=== PATIENT | male | born 1985 | race Caucasian/White ===

== ENCOUNTER 2021-01-24 18:13 | Inpatient (IN) | payer BC, SELFPAY ==
[2021-01-24 18:43] VITALS: BP 128/89; PULSE 70; RESP 16; TEMP 36.4; O2SAT 98
[2021-01-24] MEDS: hyDROXYzine 25 mg Capsule 50 MG PO (20:22)
[2021-01-24] MEDS: trazodone 50 mg Tablet PO (20:22)
[2021-01-24 20:57] VITALS: BP 105/63; PULSE 67; RESP 18; TEMP 36.6; O2SAT 96
[2021-01-24] MEDS: nicotine 2 mg Gum BUCCAL (22:25)
--- NOTE | 2021-01-25 02:24 | PC.NURSE ---
35/M DIRECT ADMISSION FROM [facility] IN [place], [place], BROUGHT TO THEIR ED BY HIS MOTHER, DEPRESSION IS CONTINUING TO WORSEN, SINCE summer WITH INCREASING EPISODES OF PSYCHOSIS. PT BELIEVES, STUFF I SAID WAS TAKEN OUT OF CONTEXT , MOTHER REPORTS PT MAKING SEVERAL STATEMENTS ABOUT SHOOTING HIMSELF WITH HIS GUN. PT DENIES SI AT THIS TIME. PT IS CONCERNED ABOUT LOSING HIS CONCEALED CARRY PERMIT FOR HIS WEAPON, HE IS CALM,COOPERATIVE, AND WELL SPOKEN. PT HAS NO PREVIOUS PSYCH VISITS
[2021-01-25 06:00] VITALS: BP 106/65; PULSE 74; RESP 16; TEMP 36.7; O2SAT 96
[2021-01-25] MEDS: nicotine 2 mg Gum BUCCAL ×2 (11:27→18:48)
--- NOTE | 2021-01-25 12:26 | PM.NHP ---
Providers/Chief Complaint Admitting Physician: Ronnie Cordoba MD Chief Complaint: NPU HPI NPU History of Present Illness SERJIO SHAW is a 35 year old male who presents hospital with reports of having made suicidal statements and posted on social media about these thoughts. His mother got very concerned and talked him into going into the emergency room. They not have availability at the hospital and so he was transferred to [facility]. He was admitted to the neuropsychiatric unit for definitive treatment of those issues. He presents reporting that he has never been in a psychiatric hospital before so this is his first admission. He denies having outpatient services before. He denies a history of suicide attempts. He endorses smoking about a pack of cigarettes a day. He reports he has a few pints of alcohol every weekend. He denies marijuana with any regularity or cocaine methamphetamine or opiates or any other illicit drugs. He reports that he does have a history of methamphetamine use by his 20s but he reports that he quit without active treatment. He denies any rehabs or DUIs. He reports that his mother did get a therapy secondary to the Facebook comments and the fact that he has been in an amotivational rut. He reports that his grandfather and his brother in law's dad committed suicide. He reports that he started going on online grants over the past year and now he feels stupid as he cannot really take things back. We discussed the risks, benefits and alternatives of starting Prozac and considering outpatient therapy and he understood and agreed to proceed as is documented in this note. Psychiatric history: As above. Substance abuse history: As above. Family history: He denies mental health or addiction issues on either side of the family. Developmental history: He denies any complications with his mother's with him or his or delivery. He reports that he learned to walk and talk and met development milestones on time. He denied speech therapy, learning support, emotional support but did endorse some/medication classes after he began school.. Psychosocial history: His mom and dad were together when he was born and he has an older sister that is a product of that union. His mother does not have other children but his father has 2 other children. He reports that his childhood was great and he denied any emotional, physical or sexual abuse. He graduated from high school and got an associates degree in college. He is a heterosexual and his longest relationship was 6 years. He never , he never had children, is never in the and he reports that he believes in God. 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 He currently lives in a house alone. Legal history: Denied. Medical history: Please see ED note for full details. Meds NPU Home Medications Medication Instructions Recorded Confirmed Last Taken Type No Known Home Medications 01/24/21 01/24/21 Unknown History Allergies Allergy/AdvReac Type Severity Reaction Status Date / Time No Known Allergies Allergy Verified 01/24/21 18:35 Mental Status Exam MSE Comments: This is an overweight white male with adequate dress, grooming and eye contact in hospital scrubs. No abnormal movements except for mild motor retardation. Cooperative with exam in mild distress. Speech was decreased rate and volume. Mood described as okay, affect slightly subdued. Thought process organized. Thought content: Patient denied suicidal or homicidal ideation, there were no delusions reported or noted, he denied any delusions except for a year or so ago when he had what he reports is a drug-induced psychosis but he did not go into more detail, there were no delusions noted he denied any auditory or visual hallucinations. Attention and concentration were intact and memory appeared reliable but none were formally tested. He is alert and oriented x3. Insight and judgment are limited but improving, impulse control is limited but improving. Vitals/I&O/Wt Last Vital Signs Temp 98.0 F 01/25/21 06:00 Pulse 74 01/25/21 06:00 Resp 16 01/25/21 06:00 BP 106/65 01/25/21 06:00 Pulse Ox 96 01/25/21 06:00 Weight last 48 hrs Weight 97.522 kg Weight 97.522 kg A&P Assessment and plan (1) Major depressive disorder: Status: Acute (2) Acute adjustment disorder with mixed disturbance of emotions and conduct: Status: Acute (3) Anxiety disorder, unspecified: Status: Acute (4) Alcohol use: Status: Acute (5) History of methamphetamine abuse: Status: Acute Additional A&P Information This is a 35-year-old white male with depression and substance use with recent suicidal threats who presents with no history of treatment and somewhat resistant to treatment but open to a trial of medication. 1. Continue current medication. Prozac 20 mg p.o. every morning. 2. Continue every 15 minute checks for safety. 3. Encourage individual, group and milieu therapies. 4. Encourage sober living treatment after discharge at the highest level of care to which he is willing to commit. Involuntary Hold Information 96 Hour Hold: 96 Hour Involuntary Admission: No Attestations NPU Medical Necessity Statement*: Inpatient hospitalization is medically necessary and the clinically appropriate intervention at this time. We will monitor medications and make changes as indicated. Patient will be in the hospital for over two midnights. Likely length of stay 1-3 days. Coding Level of Care Code Acute Validation Architect for [facility] Fwd Diagnoses Major depressive disorder F32.9 Acute adjustment disorder with mixed disturbance of emotions and conduct F43.25 Anxiety disorder, unspecified F41.9 Alcohol use Z72.89 History of methamphetamine abuse F15.11
[2021-01-25] MEDS: fluoxetine 20 mg Capsule PO (12:57)
[2021-01-25 14:00] VITALS: BP 129/84; PULSE 87; RESP 18; TEMP 37.1
[2021-01-25] MEDS: hyDROXYzine 25 mg Capsule 50 MG PO (20:15)
[2021-01-25] MEDS: trazodone 50 mg Tablet PO (20:15)
[2021-01-25] MEDS: OLANZapine 5 mg ODT PO (21:34)
[2021-01-25 22:00] VITALS: BP 132/78; PULSE 92; RESP 17; TEMP 36.8; O2SAT 96
[2021-01-26 06:00] VITALS: BP 109/66; PULSE 63; RESP 18; TEMP 37; O2SAT 98
[2021-01-26] MEDS: fluoxetine 20 mg Capsule PO (08:09)
[2021-01-26] MEDS: nicotine 2 mg Gum BUCCAL (09:55)
--- NOTE | 2021-01-26 13:38 | P.DS_ITS ---
Diagnoses at Discharge Discharge Diagnosis (1) Major depressive disorder: Status: Acute (2) Acute adjustment disorder with mixed disturbance of emotions and conduct: Status: Acute (3) Anxiety disorder, unspecified: Status: Acute (4) Alcohol use: Status: Acute (5) History of methamphetamine abuse: Status: Acute Reason for Visit Reason for Visit: NPU Brief History: History of Present Illness SERJIO SHAW is a 35 year old male who presents hospital with reports of having made suicidal statements and posted on social media about these thoughts. His mother got very concerned and talked him into going into the emergency room. They not have availability at the hospital and so he was transferred to [facility]. He was admitted to the neuropsychiatric unit for definitive treatment of those issues. He presents reporting that he has never been in a psychiatric hospital before so this is his first admission. He denies having outpatient services before. He denies a history of suicide attempts. He endorses smoking about a pack of cigarettes a day. He reports he has a few pints of alcohol every weekend. He denies marijuana with any regularity or cocaine methamphetamine or opiates or any other illicit drugs. He reports that he does have a history of methamphetamine use by his 20s but he reports that he quit without active treatment. He denies any rehabs or DUIs. He reports that his mother did get a therapy secondary to the Facebook comments and the fact that he has been in an amotivational rut. He reports that his grandfather and his brother in law's dad committed suicide. He reports that he started going on online grants over the past year and now he feels stupid as he cannot really take things back. We discussed the risks, benefits and alternatives of starting Prozac and considering outpatient therapy and he understood and agreed to proceed as is documented in this note. Psychiatric history: As above. Substance abuse history: As above. Family history: He denies mental health or addiction issues on either side of the family. Developmental history: He denies any complications with his mother's with him or his or delivery. He reports that he learned to walk and talk and met development milestones on time. He denied speech therapy, learning support, emotional support but did endorse some/medication classes after he began school.. Psychosocial history: His mom and dad were together when he was born and he has an older sister that is a product of that union. His mother does not have other children but his father has 2 other children. He reports that his childhood was great and he denied any emotional, physical or sexual abuse. He graduated from high school and got an associates degree in college. He is a heterosexual and his longest relationship was 6 years. He never , he never had children, is never in the and he reports that he believes in God. 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 He currently lives in a house alone. Legal history: Denied. Medical history: Please see ED note for full details. Hospital Course Hospital Course Serjio presented to the emergency department reporting depression and concerns for lethality. Also issues surrounding addiction. He was admitted to the neuropsychiatric unit for definitive treatment of those issues. On the unit he quickly acclimated to the individual, group milieu therapies provided. He was started on Prozac 20 mg p.o. every morning and had a positive response. He was able to contract for safety prior to discharge. During the hospitalization, patient had routine laboratory studies which were within normal limits except for few outliers. Additionally there was a general medical evaluation which was also within normal limits and revealed no new acute processes. Discharge Summary: At the time of discharge, he was absent psychosis or lethality. Mood and anxiety were well managed. Patient endorsed a plan to avoid all drugs of abuse and follow-up with the aftercare recommendations of the treatment team. Patient was evaluated and deemed to be absent credible lethality, and had achieved the maximum benefit from an inpatient hospitalization, so was discharged. Involuntary Hold Information 96 Hour Hold: 96 Hour Involuntary Admission: No Mental Status Exam MSE Comments: This is an overweight white male with adequate dress, grooming and eye contact in hospital scrubs. No abnormal movements except for mild motor retardation. Cooperative with exam in mild distress. Speech was decreased rate and volume. Mood described as better, affect congruent. Thought process organized. Thought content: Patient denied suicidal or homicidal ideation, there were no delusions reported or noted, he denied any delusions except for a year or so ago when he had what he reports is a drug-induced psychosis but he did not go into more detail, there were no delusions noted he denied any auditory or visual hallucinations. Attention and concentration were intact and memory appeared reliable but none were formally tested. He is alert and oriented x3. Insight and judgment are limited but improving, impulse control is limited but improving. Discharge Data Vitals: Last Vital Signs Temp 98.6 F 01/26/21 06:00 Pulse 63 01/26/21 06:00 Resp 18 01/26/21 06:00 BP 109/66 01/26/21 06:00 Pulse Ox 98 01/26/21 06:00 Discharge Plan Discharge Patient Disposition: Home Condition: Stable Prescriptions: New fluoxetine 20 mg Capsule 20 mg PO DAILY 30 Days Qty: 30 RF: 1 Discharge Orders: Discharge Order (Routine); Ordered 01/26/21 Ordered By: Ronnie Cordoba Discharge Diet: Regular Discharge Activity: Resume usual activity Patient Instructions: Fluoxetine (By mouth), Generalized Anxiety Disorder (DC), Methamphetamine Abuse (DC) Activity Restrictions/Additional Instructions: Follow up with your primary care provider for continued medication management. Discharge Attestations NPU Time Spent in Discharge Care*: less than 30 min Specific Discharge Activities: Specific discharge activities: educating patient, discussing with nurse case management/social workers/dc planners, documenting/other paperwork and evaluating patient/reviewing data Coding Level of Care Code Acute Clinic Mgr for Charles Fwd Diagnoses Major depressive disorder F32.9 Acute adjustment disorder with mixed disturbance of emotions and conduct F43.25 Anxiety disorder, unspecified F41.9 Alcohol use Z72.89 History of methamphetamine abuse F15.11
[2021-01-26 14:05] VITALS: BP 109/66; PULSE 63; RESP 18; TEMP 37; O2SAT 98
== END 2021-01-26 18:00 | disposition home or self-care (01) | DRG 881 ==
PROVIDERS: Admitting Provider Psychiatry & Neurology Psychiatry; Visit Provider Psychiatry & Neurology Psychiatry
DX: F32.9 Major depressive disorder, single episode, unspecified (principal); R45.851 Suicidal ideations; F17.210 Nicotine dependence, cigarettes, uncomplicated; F10.10 Alcohol abuse, uncomplicated; F15.11 Other stimulant abuse, in remission; F43.25 Adjustment disorder with mixed disturbance of emotions and conduct; F41.9 Anxiety disorder, unspecified